=== PATIENT | female | born 1975 | race Hispanic/Latino ===

== ENCOUNTER 2017-05-28 05:12 | Emergency (ER) | payer OTHER ==
[2017-05-28] MEDS ORDERED: DEXAMETHASONE SOD PHOSPHATE 10MG/ML 1ML VIAL ONE (05:29)
== END 2017-05-28 05:41 | disposition home or self-care (01) ==
LOC: EDH 05:12
DX: B34.9 Viral infection, unspecified (principal); J30.9 Allergic rhinitis, unspecified; Z90.710 Acquired absence of both cervix and uterus
CPT/HCPCS: 96372; 99283; J1100

== ENCOUNTER 2018-08-02 14:05 | Emergency (ER) | payer OTHER ==
[2018-08-02 14:43] LABS: APPEARANCE,URINE CLEAR (CLEAR); BILIRUBIN,URINE NEGATIVE (NEGATIVE); COLOR,URINE YELLOW (YELLOW); GLUCOSE, URINE (UA) NEGATIVE (NEGATIVE); KETONES,URINE 40 mg/dL (NEGATIVE); LEUKOCYTE ESTERASE ,URINE TRACE (NEGATIVE); NITRATE,URINE NEGATIVE (NEGATIVE); OCCULT BLOOD,URINE NEGATIVE (NEGATIVE); PH,URINE 5.5 (5.0-8.0); PROTEIN,URINE NEGATIVE (NEGATIVE); UROBILINOGEN,URINE 0.2 mg/dL (0.2-1.0)
[2018-08-02 14:46] LABS: HCG,QUAL RESULT NEGATIVE (NEGATIVE)
[2018-08-02 14:53] LABS: BASOPHILS % (AUTO) 0.8 % (0.0-5.0); EOSINOPHILS % (AUTO) 0.8 % (0.0-8.0); LYMPHOCYTES % (AUTO) 28.9 % (21.0-51.0); MEAN CORPUSCULAR HEMOGLOBIN 28.1 pg (27.0-33.0); MEAN CORPUSCULAR HGB CONC 33.7 g/dL (32.0-36.0); MEAN CORPUSCULAR VOLUME 83.6 fL (79-99); MONOCYTES % (AUTO) 6.5 % (3.0-13.0); PLATELET COUNT (AUTO) 309 K/uL (130-400); RED BLOOD CELL COUNT(AUTO) 5.03 MIL/uL (4.00-5.50); RED CELL DISTRIBUTION WIDTH 14.8 % (11.0-15.5); WHITE BLOOD COUNT (AUTO) 9.4 K/uL (4.8-10.8)
[2018-08-02 15:04] LABS: CREATININE 0.8 mg/dL (0.5-1.5); POTASSIUM 3.9 mmol/L (3.5-5.1)
[2018-08-02 15:09] LABS: BILIRUBIN,TOTAL 0.3 mg/dL (0.2-1.0)
[2018-08-02 15:40] LABS: BACTERIA,URINE Few /HPF (None Seen); RBC,URINE 0-1 /HPF (0-1); WBC,URINE 0-1 /HPF (0-1)
[2018-08-02 15:41] LABS: SQUAMOUS EPITHELIAL CELL,UR Few /HPF (0-2)
[2018-08-02] MEDS ORDERED: KETOROLAC TROMETHAMINE 30MG/ML IV ONE (16:06)
== END 2018-08-02 17:12 | disposition home or self-care (01) ==
LOC: EDH 14:05
DX: K52.9 Noninfective gastroenteritis and colitis, unspecified (principal); N94.89 Other specified conditions associated with female genital organs and menstrual cycle; J45.909 Unspecified asthma, uncomplicated; Z90.710 Acquired absence of both cervix and uterus
CPT/HCPCS: 36415; 74176; 80053; 81001; 81025; 83690; 84484; 85025; 96372; 99285; J1885

== ENCOUNTER 2018-08-25 21:00 | Observation (INO) | payer OTHER ==
[~2018-08-25] VITALS: Ht 157.5 cm; Wt 97.1 kg
[2018-08-25 21:31] LABS: EOSINOPHILS % (AUTO) 2.2 % (0.0-8.0); HEMATOCRIT 41.5 % (36-48); LYMPHOCYTES % (AUTO) 42.4 % (21.0-51.0); MEAN CORPUSCULAR HEMOGLOBIN 28.1 pg (27.0-33.0); MEAN CORPUSCULAR HGB CONC 33.5 g/dL (32.0-36.0); MONOCYTES % (AUTO) 8.4 % (3.0-13.0); PLATELET COUNT (AUTO) 339 K/uL (130-400); RED BLOOD CELL COUNT(AUTO) 4.95 MIL/uL (4.00-5.50); RED CELL DISTRIBUTION WIDTH 15.2 % (11.0-15.5); WHITE BLOOD COUNT (AUTO) 11.4 K/uL (4.8-10.8)
[2018-08-25 21:31] LABS: APPEARANCE,URINE CLEAR (CLEAR); BILIRUBIN,URINE NEGATIVE (NEGATIVE); COLOR,URINE YELLOW (YELLOW); GLUCOSE, URINE (UA) NEGATIVE (NEGATIVE); KETONES,URINE NEGATIVE (NEGATIVE); LEUKOCYTE ESTERASE ,URINE NEGATIVE (NEGATIVE); NITRATE,URINE NEGATIVE (NEGATIVE); OCCULT BLOOD,URINE NEGATIVE (NEGATIVE); PROTEIN,URINE NEGATIVE (NEGATIVE); UROBILINOGEN,URINE 0.2 mg/dL (0.2-1.0)
[2018-08-25 21:43] LABS: CREATININE 0.7 mg/dL (0.5-1.5); POTASSIUM 3.5 mmol/L (3.5-5.1)
[2018-08-25 21:48] LABS: ALBUMIN 3.6 g/dL (3.5-5.0); BILIRUBIN,TOTAL 0.2 mg/dL (0.2-1.0); TOTAL PROTEIN, SERUM 7.6 g/dL (6.0-8.3)
[2018-08-25 22:07] LABS: B-TYPE NATRIURETIC PEPTIDE 6 pg/mL (0-100)
[2018-08-25] MEDS ORDERED: ASPIRIN 81MG TAB.CHEW ONE (23:05)
[2018-08-25] MEDS ORDERED: ACETAMINOPHEN EXTRA STRENGTH 500 MG TABLET ONE (23:05)
[2018-08-25] MEDS ORDERED: MORPHINE SULFATE 2 MG/ML 1ML SYG IV PRN (23:45)
[2018-08-25] MEDS ORDERED: ACETAMINOPHEN 325 MG TAB PO PRN ×2 (23:45)
[2018-08-25] MEDS ORDERED: LORAZEPAM 2 MG/ML 1 ML VIAL IVP PRN (23:45)
[2018-08-25] MEDS ORDERED: MORPHINE SULFATE 4 MG/1ML SYG IV PRN (23:45)
[2018-08-25] MEDS ORDERED: ONDANSETRON HCL 4 MG/2 ML VIAL IV PRN (23:45)
[2018-08-26 00:45] VITALS: BP 123/75
[2018-08-26] MEDS ORDERED: GLUCAGON 1MG KIT 1 MG ML IM PRN (00:45)
[2018-08-26] MEDS ORDERED: DEXTROSE 50%-WATER 50 ML DISP.SYRIN IV PRN (00:45)
--- NOTE | 2018-08-26 00:45 | NUR ---
ADMISSION. PT ADMITTED INTO ROOM 403 FROM ER. PT AWAKE, ALERT AND RESPONSIVE, NO C/O PAIN, DISCOMFORT, OR SOB AT THIS TIME. VS ASSESSED, WNL FOR PTS. TOLL GATE TENDER PLACED ON PT, GEOSPATIAL SYSTEMS INTEGRATOR FADUMO VERIFIED TELEMETRY IS CONNECTED, PT IS NSR. PT AND PT SPOUSE ORIENTED TO ROOM, CALL OCONNOR WITHIN REACH, BED IN LOWEST POSITION. Addendum: 08/26/18 at 0119 by DULCE GUIDRY RN Amended: Links added.
[2018-08-26] MEDS ORDERED: CLAR500T PO (01:22)
[2018-08-26] MEDS ORDERED: AMOX500C2 PO (01:22)
[2018-08-26 02:02] LABS: CREATINE KINASE, TOTAL 113 U/L (21-232); MYOGLOBIN 31 ng/mL (10-92); TROPONIN I < 0.04 ng/mL (0.00-0.06)
[2018-08-26 03:38] VITALS: BP 125/82
[2018-08-26] MEDS: INSULIN HUMULIN R 100 UNIT/ML 3ML SQ SCH ×4 (05:39→21:00)
[2018-08-26 06:12] LABS: CREATINE KINASE, TOTAL 107 U/L (21-232); MYOGLOBIN 30 ng/mL (10-92); TROPONIN I < 0.04 ng/mL (0.00-0.06)
[2018-08-26 07:55] VITALS: BP 106/66
[2018-08-26] MEDS ORDERED: ENOXAPARIN SODIUM 30 MG/0.3 ML SQ SCH (09:00)
[2018-08-26] MEDS ORDERED: ASPIRIN 325 MG TABLET PO SCH (09:00)
[2018-08-26] MEDS: NITROGLYCERIN 1GM/1 INCH PACKET TD SCH ×4 (09:33→23:32)
[2018-08-26] MEDS: FAMOTIDINE/PF 20 MG/2 ML VIAL IV SCH ×2 (09:33→20:37)
[2018-08-26] MEDS: METOPROLOL TARTRATE 25 MG TAB PO SCH ×2 (09:34→20:37)
[2018-08-26 09:44] LABS: CREATINE KINASE, TOTAL 93 U/L (21-232); MYOGLOBIN 36 ng/mL (10-92); TROPONIN I < 0.04 ng/mL (0.00-0.06)
--- NOTE | 2018-08-26 10:00 | NUR ---
INITIAL MET W PT AND SPOUSE, FAMILY IN ROOM, LIVES W SPOUE AND KIDS, IS EMPLOYED, INDP OF ADLS, DRIVES, NO DME; ADMIT FOR CHEST PAIN, RECURRENT, APPEARS ANXIOUS, DCP IS TO HOME. CM TO FOLLOW Addendum: 08/26/18 at 1703 by TJ PRUITT RN CM Amended: Links added.
[2018-08-26 10:53] VITALS: BP 115/73
[2018-08-26] MEDS ORDERED: LORAZEPAM 0.5 MG TABLET PO PRN (13:30)
[2018-08-26 16:01] VITALS: BP 107/52
[2018-08-26 19:30] VITALS: BP 128/71
--- NOTE | 2018-08-26 20:40 | NUR ---
MEDS SHIFT ASSESSMENT DONE, PLEASE REFER TO CHART. DUE MEDS ADMINISTERED, TOLERATED WELL. KEPT RESTED AND COMFORTABLE. CALL LIGHT WITHIN REACH. LEFT PT STILL VISITING WITH FAMILY. Addendum: 08/27/18 at 0124 by MARYAM MORRIS RN RN Amended: Links added.
[2018-08-26] MEDS ORDERED: ATORVASTATIN CALCIUM 40 MG TABLET PO SCH (21:00)
--- NOTE | 2018-08-26 23:35 | NUR ---
MEDS PT AWAKENED BY PCP FOR V/S. MONITORED, STABLE. DUE MEDS ADMINISTERED, TOLERATED WELL. DENIES ANY NEEDS AT THIS TIME. NO DISTRESS NOTED. KEPT RESTED AND COMFORTABLE. CALL LIGHT WITHIN REACH. WILL MONITOR PT.
[2018-08-27] VITALS: BP 119/73
--- NOTE | 2018-08-27 02:00 | NUR ---
ROUNDS PT FAIRLY ASLEEP WITH RESPIRATIONS EVEN AND UNLABORED. NO NOTED DISTRESS. KEPT UNDISTURBED FOR NOW. WILL CONTINUE TO MONITOR. CALL LIGHT WITHIN REACH.
[2018-08-27 04:00] VITALS: BP 128/74
--- NOTE | 2018-08-27 04:12 | NUR ---
HEADACHE PT COMPLAINTS OF HEADACHE. MEDICATED WITH TYLENOL PO. KEPT RESTED IN BED. EXPLAINED THAT NITROL PATCH HAS SIDE EFFECT OF HEADACHE. PT VERBALIZES UNDERSTANDING. WILL RE-ASSESS PT. Addendum: 08/27/18 at 0422 by MARYAM MORRIS RN RN Amended: Links added.
[2018-08-27 04:38] LABS: HEMATOCRIT 39.3 % (36-48); MEAN CORPUSCULAR HEMOGLOBIN 28.2 pg (27.0-33.0); MEAN CORPUSCULAR VOLUME 82.9 fL (79-99); PLATELET COUNT (AUTO) 341 K/uL (130-400); RED BLOOD CELL COUNT(AUTO) 4.74 MIL/uL (4.00-5.50); RED CELL DISTRIBUTION WIDTH 14.8 % (11.0-15.5); WHITE BLOOD COUNT (AUTO) 10.2 K/uL (4.8-10.8)
[2018-08-27 05:05] LABS: CREATININE 0.8 mg/dL (0.5-1.5); POTASSIUM 3.8 mmol/L (3.5-5.1)
[2018-08-27] MEDS: INSULIN HUMULIN R 100 UNIT/ML 3ML SQ SCH ×3 (06:09→16:30)
[2018-08-27 07:41] VITALS: BP 98/54
[2018-08-27] MEDS: NITROGLYCERIN 1GM/1 INCH PACKET TD SCH ×2 (08:00→16:00)
[2018-08-27] MEDS ORDERED: ASPIRIN 325 MG TABLET PO SCH (09:00)
[2018-08-27] MEDS ORDERED: ENOXAPARIN SODIUM 30 MG/0.3 ML SQ SCH (09:00)
[2018-08-27] MEDS: METOPROLOL TARTRATE 25 MG TAB PO SCH (09:00)
[2018-08-27] MEDS ORDERED: ASPIRIN 81MG TAB.CHEW ONE (09:54)
[2018-08-27] MEDS: FAMOTIDINE/PF 20 MG/2 ML VIAL IV SCH (09:56)
[2018-08-27] MEDS ORDERED: FAMO-136 PO (10:43)
[2018-08-27 11:01] VITALS: BP 112/67
--- NOTE | 2018-08-27 17:32 | NUR ---
DISCHARGE INSTRUCTIONS GIVEN AND EXPLAINED UTILIZING TEACH BACK METHOD. FAMILY AT BEDSIDE TO OVERLOCK COLLAR SETTER PATIENT AND TAKE HOME. DISCHARGED PT.
== END 2018-08-27 18:10 | disposition home or self-care (01) ==
LOC: EDH 21:00 → INTOOBSV 22:50 → EDHIP 22:50 → 4AH 08-26 00:23
PROVIDERS: ADMIT Internal Medicine; ATTEND Internal Medicine
DX: R07.89 Other chest pain (principal); K21.9 Gastro-esophageal reflux disease without esophagitis; E66.9 Obesity, unspecified; E11.65 Type 2 diabetes mellitus with hyperglycemia; F41.9 Anxiety disorder, unspecified; Z68.39 Body mass index [BMI] 39.0-39.9, adult; Z90.711 Acquired absence of uterus with remaining cervical stump; Z79.899 Other long term (current) drug therapy
CPT/HCPCS: 36415 ×3; 71045; 80048; 80053; 81003; 82550 ×3; 82948 ×6; 83874 ×3; 83880; 84484 ×4; 85025; 85027; 93005 ×2; 96372 ×2; 96374; 96376 ×2; 99284; G0378 ×43; J1650 ×2; J3490 ×3

== ENCOUNTER 2019-07-01 13:16 | Emergency (ER) | payer OTHER ==
[~2019-07-01 13:16] MED LIST: FAMO-136 PO
[2019-07-01 13:49] LABS: BASOPHILS % (AUTO) 0.5 % (0.0-5.0); EOSINOPHILS % (AUTO) 1.6 % (0.0-8.0); HEMATOCRIT 42.3 % (36-48); LYMPHOCYTES % (AUTO) 42.4 % (21.0-51.0); MEAN CORPUSCULAR HEMOGLOBIN 27.3 pg (27.0-33.0); MEAN CORPUSCULAR HGB CONC 32.6 g/dL (32.0-36.0); MEAN CORPUSCULAR VOLUME 83.6 fL (79-99); MONOCYTES % (AUTO) 6.8 % (3.0-13.0); NEUTROPHILS % (AUTO) 48.4 % (40.0-77.0); PLATELET COUNT (AUTO) 345 K/uL (130-400); RED BLOOD CELL COUNT(AUTO) 5.06 MIL/uL (4.00-5.50); RED CELL DISTRIBUTION WIDTH 14.1 % (11.0-15.5); WHITE BLOOD COUNT (AUTO) 11.1 K/uL (4.8-10.8)
[2019-07-01 13:58] LABS: CREATININE 0.8 mg/dL (0.5-1.5); POTASSIUM 3.4 mmol/L (3.5-5.1)
[2019-07-01 14:00] LABS: INR 0.93 (0.85-1.15); PARTIAL THROMBOPLASTIN TIME 24.5 SEC (26.3-35.5); PROTHROMBIN TIME 10.1 SEC (9.6-11.6)
[2019-07-01 14:01] LABS: APPEARANCE,URINE Clear (CLEAR); BILIRUBIN,URINE Negative (NEGATIVE); COLOR,URINE Yellow (YELLOW); GLUCOSE, URINE (UA) Negative (NEGATIVE); KETONES,URINE Negative (NEGATIVE); LEUKOCYTE ESTERASE ,URINE Negative (NEGATIVE); NITRATE,URINE Negative (NEGATIVE); OCCULT BLOOD,URINE Negative (NEGATIVE); PROTEIN,URINE Negative (NEGATIVE); UROBILINOGEN,URINE 0.2 mg/dL (0.2-1.0)
[2019-07-01 14:04] LABS: HCG,QUAL RESULT NEGATIVE (NEGATIVE)
[2019-07-01 14:46] LABS: BILIRUBIN,TOTAL 0.2 mg/dL (0.2-1.0); TOTAL PROTEIN, SERUM 7.9 g/dL (6.0-8.3)
== END 2019-07-01 15:52 | disposition home or self-care (01) ==
LOC: EDH 13:16
DX: R10.9 Unspecified abdominal pain (principal); J45.909 Unspecified asthma, uncomplicated; E11.9 Type 2 diabetes mellitus without complications
CPT/HCPCS: 36415; 71045; 80053; 81003; 81025; 82550; 83690; 84484; 85025; 85610; 85730; 93005

== ENCOUNTER 2021-10-16 18:39 | Emergency (ER) | payer OTHER ==
[~2021-10-16] VITALS: Ht 160 cm; Wt 122.5 kg
[2021-10-16 18:40] VITALS: BP 157/90
== END 2021-10-16 19:43 | disposition home or self-care (01) ==
LOC: EDH 18:39
DX: M54.42 Lumbago with sciatica, left side (principal); Z88.0 Allergy status to penicillin
CPT/HCPCS: 99281